=== PATIENT | male | born 1995 | race Caucasian/White ===

== ENCOUNTER 2018-03-06 15:51 | Emergency (ER) | payer MEDICAID, OTHER ==
[2018-03-06] MEDS: predniSONE 20 MG TAB PO (17:09)
== END 2018-03-06 17:31 | disposition home or self-care (01) ==
LOC: FTE 15:51
DX: L30.9 Dermatitis, unspecified (principal)
CPT/HCPCS: 99284; J7512

== ENCOUNTER 2019-03-01 20:14 | Emergency (ER) | payer SELFPAY ==
[2019-03-02] MEDS: IBUPROFEN 600 MG TAB PO (00:42)
== END 2019-03-02 02:30 | disposition home or self-care (01) ==
LOC: FTE 20:14
DX: S92.135A Nondisplaced fracture of posterior process of left talus, initial encounter for closed fracture (principal); X50.1XXA Overexertion from prolonged static or awkward postures, initial encounter; Y92.9 Unspecified place or not applicable
CPT/HCPCS: 73610; 73630-LT; 99283-25